=== PATIENT | female | born 1985 | race Two or more races ===

== ENCOUNTER 2017-10-06 16:27 | Inpatient (IN) | payer OTHER ==
[~2017-10-06] VITALS: Ht 162.6 cm; Wt 55.3 kg
[~2017-10-06 16:27] MED LIST: PRENATALES
[2017-10-06] MEDS ORDERED: MILANTA PO (17:56)
[2017-10-10] MEDS ORDERED: OBTREX DHA PRE1 EACH PO (11:16)
[2017-10-11] MEDS ORDERED: METRONIDAZ500 MG/100 IV (09:00)
== END 2017-10-11 16:44 | disposition home or self-care (01) | DRG 778 ==
LOC: OBS/DEL 16:27 → OB/GYN 10-07 08:19 → LDR 10-07 08:19 → OBS/DEL 10-07 08:19 → OB/GYN 10-08 10:54 → LDR 10-11 16:43
PROC: BY4FZZZ Ultrasonography of Third Trimester, Single Fetus (ICD-10-PCS; principal; 2017-10-07)
PROC: 4A1HXCZ Monitoring of Products of Conception, Cardiac Rate, External Approach (ICD-10-PCS; 2017-10-07)
DX: O60.03 Preterm labor without delivery, third trimester (principal); O23.593 Infection of other part of genital tract in pregnancy, third trimester; O23.43 Unspecified infection of urinary tract in pregnancy, third trimester; O98.813 Other maternal infectious and parasitic diseases complicating pregnancy, third trimester; N76.0 Acute vaginitis; B95.1 Streptococcus, group B, as the cause of diseases classified elsewhere; B37.3 Candidiasis of vulva and vagina; Z3A.32 32 weeks gestation of pregnancy

== ENCOUNTER 2017-10-12 22:21 | Inpatient (IN) | payer OTHER ==
[~2017-10-12] VITALS: Ht 162.6 cm; Wt 2.7 kg
[~2017-10-12 22:21] MED LIST changes: +METRONIDAZ500 MG/100 IV; +MILANTA PO; +OBTREX DHA PRE1 EACH PO
== END 2017-11-01 19:21 | disposition home or self-care (01) | DRG 765 ==
LOC: OB/GYN 22:21 → LDR 22:21 → OB/GYN 10-16 19:54
PROVIDERS: Obstetrics & Gynecology
PROC: 4A1HXCZ Monitoring of Products of Conception, Cardiac Rate, External Approach (ICD-10-PCS; 2017-10-12)
PROC: BY4FZZZ Ultrasonography of Third Trimester, Single Fetus (ICD-10-PCS; 2017-10-12)
PROC: BU4CZZZ Ultrasonography of Uterus and Ovaries (ICD-10-PCS; 2017-10-12)
PROC: BY4CZZZ Ultrasonography of Second Trimester, Single Fetus (ICD-10-PCS; 2017-10-28)
PROC: 0UT70ZZ Resection of Bilateral Fallopian Tubes, Open Approach (ICD-10-PCS; 2017-10-29)
PROC: 4A033R1 Measurement of Arterial Saturation, Peripheral, Percutaneous Approach (ICD-10-PCS; 2017-10-29)
PROC: 10D00Z1 Extraction of Products of Conception, Low, Open Approach (ICD-10-PCS; principal; 2017-10-29 12:00)
DX: O34.211 Maternal care for low transverse scar from previous cesarean delivery (principal); O60.14X0 Preterm labor third trimester with preterm delivery third trimester, not applicable or unspecified; O75.3 Other infection during labor; O98.82 Other maternal infectious and parasitic diseases complicating childbirth; B37.49 Other urogenital candidiasis; Z3A.33 33 weeks gestation of pregnancy; Z30.2 Encounter for sterilization; Z64.1 Problems related to multiparity; Z37.0 Single live birth